=== PATIENT | male | born 1995 | race Caucasian/White ===

== ENCOUNTER → 2016-09-23 | Day surgery (SDC) | payer OTHER ==
[~2016-09-23] VITALS: Ht 185.4 cm; Wt 77.9 kg
[~2016-09-23] MED LIST: *morphine SULFATE 8 MG/ML PERIprocedure ONLY ONE; ACETAMINOPHEN 1000 MG/100 ML VIAL IV ONE; BACITRACIN TOP OINT 15 GM TUBE ONE; BUPIVACAINE HCL PF 0.5% 30 ML VIAL ONE; CHLORHEXIDINE GLUCONATE 2 % 1 PACK (2 CLOTHS) TOPICAL PRN; CLINDAMYCIN 600 MG/NS 100 ML IV SCH; CLINDAMYCIN PHOS 600 MG/4 ML VIAL ONE; DO NOT ADM ANY ANTICOAGULANT DRUGS PRN; FAMOTIDINE 20 MG/2 ML VIAL ONE; HYDROmorphone HCL PF 1 MG/ML VIAL IV PRN; HYDROmorphone HCL PF 2 MG/ML VIAL ONE; INSULIN HUMAN REGULAR 1,000 UNITS/10 ML VIAL SQ PRN; LACTATED RINGER'S 1000 ML INJ 1,000 ML IV ONE; LACTATED RINGER'S 1000 ML IV PRN; LIDOCAINE HCL 1% 50 ML VIAL ONE; LIDOCAINE HCL 2% 50 ML VIAL ONE; METOPROLOL TARTRATE 25 MG TAB PO PRN; MIDAZOLAM HCL 2 MG/2 ML VIAL ONE; NEOMYCIN/POLYMYXIN/BACITRACIN OINT 15 GM TUBE ONE; ONDANSETRON HCL 4 MG/2 ML VIAL IV PUSH ONE; ONDANSETRON HCL 4 MG/2 ML VIAL IV PUSH PRN; PERCOCET; POVIDONE IODINE 5% (ANTISEPSIS KIT) 4 APPLICATIONS EACH NARE PRN; PROPOFOL 200 MG/20 ML AMP IV ONE; SODIUM CHLORID 0.9% 500 ML IV PRN; SODIUM CHLORIDE 0.9% INJ 100 ML ONE; SODIUM CHLORIDE FLUSH PRN IV FLUSH; TRIAMCINOLONE ACETONIDE 40 MG/ML VIAL ONE; Z.0.NO CURRENT MEDS; ceFAZolin 2 GM PREMIX 50 ML IV SCH; fentaNYL CITRATE 250 MCG/5 ML AMP ONE
[2016-09-23 09:47] VITALS: BP 122/70; PULSE 48; TEMP 97.4; O2SAT 16
[2016-09-23 15:58] VITALS: BP 139/69; PULSE 61; RESP 16; TEMP 97.6; O2SAT 97
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
== END | disposition home or self-care (01) ==
LOC: HSDC 09:02
PROVIDERS: ATTEND Orthopaedic Surgery
DX: S62.024K Nondisplaced fracture of middle third of navicular [scaphoid] bone of right wrist, subsequent encounter for fracture with nonunion (principal)
CPT/HCPCS: 01830; 25440; 76000; C1713; J0131; J1170; J2250; J2270; J2405; J3010; J7120; J3301